=== PATIENT | female | born 2000 | race Hispanic/Latino ===

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

== ENCOUNTER 2021-04-11 18:29 | Emergency (ER) | payer MEDICAID ==
[~2021-04-11] VITALS: Ht 157.5 cm; Wt 85.0 kg
[~2021-04-11 18:29] MED LIST changes: +TAM75CAP PO; +TESSALON PER100 MG PO
[2021-04-11] MEDS ORDERED: AMOXICILLIN500 M2 PO (19:10)
[2021-04-11 19:14] VITALS: BP 128/85
== END 2021-04-11 19:18 | disposition home or self-care (01) ==
LOC: ED 18:29
DX: H65.91 Unspecified nonsuppurative otitis media, right ear (principal)

== ENCOUNTER 2021-06-06 22:25 | Emergency (ER) | payer MEDICAID ==
[~2021-06-06] VITALS: Ht 157.5 cm; Wt 104.0 kg
[~2021-06-06 22:25] MED LIST changes: +AMOXICILLIN500 M2 PO
[2021-06-06 23:09] LABS: HEMATOCRIT 38.6 % (37.0-47.0); HEMOGLOBIN 12.6 g/dl (12.0-16.0); IMMATURE GRANULOCYTES 0.2 % (0.0-5.0); MEAN CELL VOLUME 83.2 fL CALC (80.0-100.0); MEAN CORPUSCULAR HGB 27.2 pG CALC (26.0-32.0); MEAN CORPUSCULAR HGB CONC 32.6 g/dL CAL (32.0-36.0); NEUT# 9.47 thou/uL (2.00-7.15); RED BLOOD COUNT 4.64 mill/uL (4.20-5.60)
[2021-06-06 23:11] LABS: URINE BILIRUBIN - DIPSTICK NEGATIVE (NEGATIVE); URINE BLOOD DIPSTICK NEGATIVE (NEGATIVE); URINE COLOR YELLOW; URINE GLUCOSE - DIPSTICK NEGATIVE (NEGATIVE); URINE KETONE TRACE mg/dL (NEGATIVE); URINE LEUK ESTERASE NEGATIVE (NEGATIVE); URINE PROTEIN - DIPSTICK NEGATIVE (NEG-TRACE); URINE SPECIFIC GRAVITY 1.025
[2021-06-06 23:12] LABS: URINE NITRITE - DIPSTICK NEGATIVE (Negative)
[2021-06-06 23:28] LABS: ALBUMIN 4.4 g/dL (3.2-5.0); ANION GAP 13 (6-22 (CALC)); BUN 14 mg/dL (8-21); BUN/CREATININE RATIO 17 (12-20 (CALC)); CARBON DIOXIDE 29 mmol/l (22-30); CHLORIDE 101 mmol/l (95-108); CREATININE 0.8 mg/dL (0.5-1.0); ETHYL ALCOHOL 0 mg/dl (0-30); GFR > 60 ML/MIN (>=60 (CALC)); GFR FOR AFR.AMER. > 60 ML/MIN (>=60 (CALC)); POTASSIUM 3.3 mmol/l (3.5-5.1); SGOT/AST 44 u/l (14-36); SODIUM 139 mmol/l (137-146)
[2021-06-06 23:29] LABS: ALKALINE PHOSPHATASE 99 u/l (38-126); BILIRUBIN, TOTAL 0.1 mg/dL (0.0-1.4)
[2021-06-06 23:38] LABS: MYOGLOBIN 28 ng/mL (0 - 62)
[2021-06-07 01:05] VITALS: BP 114/66
== END 2021-06-07 01:07 | disposition designated cancer center or children's hospital (05) ==
LOC: ED 22:25
PROVIDERS: Family Medicine
DX: S13.9XXA Sprain of joints and ligaments of unspecified parts of neck, initial encounter (principal); R07.89 Other chest pain; R45.851 Suicidal ideations; W22.01XA Walked into wall, initial encounter

== ENCOUNTER 2021-08-12 11:10 | Emergency (ER) | payer MEDICAID ==
[~2021-08-12] VITALS: Ht 157.5 cm; Wt 94.1 kg
[2021-08-12] MEDS ORDERED: BUSPAR10 M1 PO (11:26)
[2021-08-12] MEDS ORDERED: ESCITALOPRAM OX10 MG PO (11:27)
[2021-08-12] MEDS ORDERED: TRAZODONE100 MG PO (11:28)
[2021-08-12] MEDS ORDERED: AMOX/K CLAV875 M1 PO (12:47)
[2021-08-12 12:55] VITALS: BP 121/79
== END 2021-08-12 12:55 | disposition home or self-care (01) ==
LOC: ED 11:10
DX: J02.9 Acute pharyngitis, unspecified (principal); F41.9 Anxiety disorder, unspecified; F32.9 Major depressive disorder, single episode, unspecified; F17.200 Nicotine dependence, unspecified, uncomplicated; Z20.822 Contact with and (suspected) exposure to COVID-19

== ENCOUNTER 2022-04-13 22:09 | Emergency (ER) | payer MEDICAID ==
[~2022-04-13 22:09] MED LIST changes: +AMOX/K CLAV875 M1 PO; +BUSPAR10 M1 PO; +ESCITALOPRAM OX10 MG PO; +TRAZODONE100 MG PO
== END 2022-04-13 22:19 | disposition left against medical advice (07) | DRG 951 ==
LOC: ED 22:09 → LWOBS 22:19
DX: Z53.21 Procedure and treatment not carried out due to patient leaving prior to being seen by health care provider (principal)

== ENCOUNTER 2024-07-21 15:07 | Emergency (ER) | payer SELFPAY ==
[~2024-07-21] VITALS: Ht 157.5 cm; Wt 113.0 kg
[2024-07-21 15:44] VITALS: BP 118/94
[2024-07-21] MEDS ORDERED: POVIDONE IODINE 0.5 OZ/BTL TOP STA (15:55)
[2024-07-21] MEDS ORDERED: LIDOcaine HCl 1% (Local Anesth.) 20 ML VIAL STI STA (15:55)
[2024-07-21 16:00] VITALS: BP 128/84
[2024-07-21 16:03] VITALS: BP 128/84
[2024-07-21] MEDS ORDERED: BACTRIM DS1 TAB PO ×2 (16:18→16:23)
== END 2024-07-21 16:39 | disposition home or self-care (01) | DRG 603 ==
LOC: ED 15:07
PROC: 0H9JXZZ Drainage of Left Upper Leg Skin, External Approach (ICD-10-PCS; principal; 2024-07-21)
DX: L02.416 Cutaneous abscess of left lower limb (principal); F32.A Depression, unspecified; F41.9 Anxiety disorder, unspecified; Z72.0 Tobacco use

== ENCOUNTER 2024-07-23 11:20 | Emergency (ER) | payer SELFPAY ==
[~2024-07-23] VITALS: Ht 157.5 cm; Wt 68.0 kg
[~2024-07-23 11:20] MED LIST changes: +BACTRIM DS1 TAB PO
[2024-07-23 12:08] VITALS: BP 108/87
== END 2024-07-23 12:14 | disposition home or self-care (01) | DRG 951 ==
LOC: ED 11:20
DX: Z48.01 Encounter for change or removal of surgical wound dressing (principal)